=== PATIENT | male | born 1990 | race Caucasian/White ===

== ENCOUNTER 2016-08-22 16:52 | Emergency (ER) | payer SELFPAY ==
[~2016-08-22] VITALS: Ht 175.3 cm; Wt 90.0 kg
[~2016-08-22 16:52] MED LIST: CLEO300C2 PO; MEDR4PAK3 PO
[2016-08-22 16:54] VITALS: BP 138/84; PULSE 94; RESP 15; TEMP 98.1; O2SAT 97
[2016-08-22] MEDS ORDERED: PREPCRE RECTAL (17:29)
[2016-08-22] MEDS ORDERED: IBUP800T23 PO (17:29)
[2016-08-22] MEDS ORDERED: TRAM50TA PO (17:29)
[2016-08-22] MEDS ORDERED: HYDR2.5%T RECTAL (17:30)
--- NOTE | 2016-08-22 17:40 | PD ---
HPI Chief Complaint: Pain: Acute or Chronic Time Seen by Provider: 17:29 Travel History International Travel<30 days: No Contact w/Intl Traveler<30days: No Traveled to known affect area: No History of Present Illness HPI 25-year-old male presents to the emergency room for evaluation of rectal pain for the past 2-3 days. Patient states pain started gradually and has gotten worse. Pain is exacerbated with sitting or any pressure to the rectal area such as with bowel movements. Patient reports no history of constipation but states he gets inpatient on the toilet and pushes his stool out faster than he should. 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 Denies history of hemorrhoids and rectal bleeding. Denies fever, chills, nausea, and vomiting. Patient denies inserting anything into his rectum. He has not applied anything to the area. [facility] Social History Alcohol Use: Yes Tobacco Use: Yes Substance Use: No Allergies-Medications (Allergen,Severity, Reaction): Coded Allergies: Codeine (Verified Allergy, Severe, Anaphylaxis, 08/22/16) Shellfish (Verified Allergy, Severe, 08/22/16) Reported Meds & Prescriptions Reported Meds & Active Scripts Active No Active Prescriptions or Reported Medications Review of Systems Except as stated in HPI: all other systems reviewed are Neg Physical Exam Narrative GENERAL: Well-nourished, well-developed male in no acute distress. Afebrile. Ambulatory. SKIN: Warm and dry. HEAD: Normocephalic. EYES: No scleral icterus. No injection or drainage. NECK: Supple, trachea midline. No JVD or lymphadenopathy. CARDIOVASCULAR: Regular rate and rhythm without murmurs, gallops, or rubs. RESPIRATORY: Breath sounds equal bilaterally. No accessory muscle use. RECTAL EXAM: Examined in the presence of a nurse. There is a fourth degree, nonthrombosed, nonbleeding hemorrhoid at the 2 o'clock position. It is extremely tender to palpation. No surrounding erythema or induration. Data Data Last Documented VS Vital Signs Date Time Temp Pulse Resp B/P Pulse Ox O2 Delivery O2 Flow Rate FiO2 08/22/16 17:13 16 08/22/16 16:54 98.1 94 138/84 97 MDM Medical Decision Making Medical Screen Exam Complete: Yes Emergency Medical Condition: Yes Medical Record Reviewed: Yes Differential Diagnosis Hemorrhoid versus perirectal abscess versus thrombosed hemorrhoid versus foreign body Narrative Course 25-year-old male presents to the emergency room for evaluation of rectal pain for the past 2-3 days. Patient lifts heavy things at work but denies significant constipation. States he pushes his stool out faster than he should because he is "impatient." Physical exam reveals a fourth degree, nonthrombosed , nonbleeding hemorrhoid at the 2 o'clock position. It is extremely tender to palpation. No surrounding erythema or induration. I had my attending physician , Dr. Nobles, assess the patient and there is no concern for perirectal abscess at this time. Patient discharged with prescriptions for tramadol, ibuprofen, and Anusol. Told to follow up with a primary care physician or call her surgeon if symptoms persist or return to the emergency room for worsening symptoms. Understands and agrees to plan. Diagnosis Primary Impression: Hemorrhoids Qualified Code: K64.3 - Fourth degree hemorrhoids Referrals: [facility] Patient Instructions: General Instructions, Hemorrhoids (ED) Additional Instructions: Rest and drink plenty of fluids. Take Ultram as directed, as needed for pain. Do not drink alcohol or drive while taking this medication. Take ibuprofen with food as directed, as needed for pain. Apply Anusol as directed. Do sitz bath 34 times daily. You can also purchase Tucks Pads [id number]. Follow-up with a primary care physician. Return to the emergency room for worsening symptoms. Med/Other Pt SpecificInfo: Prescription(s) given Scripts Ohzkvmekv-Skzvsjjawiyqw-Napkxqch Topical (Preparation H Topical)1-0.25-14.4-15 % Cre1 Applic RECTAL QID PRN (ITCHING) #1 TUBE Ref 0 Prov:Tha Nobles MD 08/22/16 Ibuprofen 800 Mg [id number] Mg PO Q8H PRN (Pain/Inflammation) #21 TAB Ref 0 Prov:Tha Nobles MD 08/22/16 Tramadol 50 Mg Tab50 Mg PO Q6H PRN (PAIN) #12 TAB Ref 0 Prov:Tha Nobles MD 08/22/16 Disposition: 01 DISCHARGE HOME Condition: Stable Tanna Lovelace Aug 22, 2016 17:40
== END 2016-08-22 18:42 | disposition home or self-care (01) ==
LOC: NEPA 16:52
DX: K64.3 Fourth degree hemorrhoids (principal); Z72.0 Tobacco use
CPT/HCPCS: 99283

== ENCOUNTER 2017-06-05 13:36 | Emergency (ER) | payer SELFPAY ==
[~2017-06-05] VITALS: Ht 175.3 cm; Wt 91.0 kg
[~2017-06-05 13:36] MED LIST changes: -CLEO300C2 PO; +HYDR2.5%T RECTAL; +IBUP1TAB7 PO; -MEDR4PAK3 PO; +TRAM50TA PO
[2017-06-05 13:39] VITALS: BP 144/99; PULSE 120; RESP 18; TEMP 98.3; O2SAT 96
[2017-06-05] MEDS ORDERED: PRED20 PO (14:17)
--- NOTE | 2017-06-05 14:17 | PD ---
HPI Chief Complaint: Musculoskeletal Complaint Time Seen by Provider: 14:00 Travel History International Travel<30 days: No Contact w/Intl Traveler<30days: No Traveled to known affect area: No History of Present Illness HPI 26-year-old male here for evaluation of nontraumatic left foot pain since yesterday. Pain is sharp localized to the sole of the foot. worse with weight bearing and slight improvement with rest. He denies puncture wounds or sores to the foot. Pain scale 5/10. PFSH Past Medical History Medical History: Denies Significant Hx Past Surgical History Surgical History: No Previous Surgery Social History Alcohol Use: Yes Tobacco Use: Yes Substance Use: No Allergies-Medications (Allergen,Severity, Reaction): Coded Allergies: codeine (Unverified Allergy, Severe, Anaphylaxis, 06/05/17) shellfish derived (Unverified Allergy, Severe, 06/05/17) Reported Meds & Prescriptions Reported Meds & Active Scripts Active Prednisone 20 Mg Tab 40 Mg PO DAILY Take 40 mg (2 tablets) daily for 5 days Review of Systems Except as stated in HPI: all other systems reviewed are Neg Physical Exam Narrative GENERAL: Well-nourished, well-developed patient. SKIN: Focused skin assessment warm/dry. HEAD: Normocephalic. CARDIOVASCULAR: Regular rate and rhythm without murmurs, gallops, or rubs. RESPIRATORY: Breath sounds equal bilaterally. No accessory muscle use. GASTROINTESTINAL: Abdomen soft, non-tender, nondistended. MUSCULOSKELETAL: No cyanosis, or edema. Left foot: Tenderness across the sole of the left foot. No evidence of puncture wound. No signs or symptoms of infection. No deformity noted. 2+ dorsal pedis pulse. Brisk cap refill. Data Data Last Documented VS Vital Signs Date Time Temp Pulse Resp B/P (MAP) Pulse Ox O2 Delivery O2 Flow Rate FiO2 06/05/17 13:39 98.3 120 18 144/99 (114) 96 Orders Orders Dexamethasone Inj (Decadron Inj) (06/05/17 14:30) MDM Medical Decision Making Medical Screen Exam Complete: Yes Emergency Medical Condition: Yes Differential Diagnosis Plantar fasciitis, midfoot sprain, gout, other Narrative Course 26-year-old male here with nontraumatic left foot pain for 1 day. The pain is localized to the sole of the left foot. There is no evidence of puncture wound , infection, or fracture. Patient will be treated for plantar fasciitis. Diagnosis Primary Impression: Plantar fasciitis Referrals: [facility] Forms: Tests/Procedures, Work Release Enter return to work date: Jun 07, 2017 Additional Instructions: use [id number] Tylenol or Motrin as needed for pain. Avoid prolonged standing and walking. Scripts Prednisone (Prednisone) 20 Mg Tab 40 MG PO DAILY, #8 TAB 0 Refills Take 40 mg (2 tablets) daily for 5 days Prov: Belinda Laurent 06/05/17 Disposition: 01 DISCHARGE HOME Condition: Stable Belinda Laurent Jun 05, 2017 14:17
[2017-06-05] MEDS ORDERED: DEXAMETHASONE SOD PHOS 4 MG/ML VIAL IM ONE (14:30)
== END 2017-06-05 14:29 | disposition home or self-care (01) ==
LOC: PHEFT 13:36
DX: M72.2 Plantar fascial fibromatosis (principal); Z72.0 Tobacco use
CPT/HCPCS: 96372; 99284; J1100

== ENCOUNTER 2017-07-16 17:56 | Emergency (ER) | payer SELFPAY ==
[~2017-07-16] VITALS: Ht 175.3 cm; Wt 95.7 kg
[~2017-07-16 17:56] MED LIST changes: -HYDR2.5%T RECTAL; -IBUP1TAB7 PO; +PRED20 PO; -TRAM50TA PO
[2017-07-16 18:09] VITALS: BP 127/75; PULSE 70; RESP 16; TEMP 98.3; O2SAT 97
--- NOTE | 2017-07-16 19:25 | PD ---
HPI Chief Complaint: Musculoskeletal Complaint Time Seen by Provider: 19:11 Travel History International Travel<30 days: No Contact w/Intl Traveler<30days: No Traveled to known affect area: No History of Present Illness HPI 26-year-old male here with nontraumatic right shoulder and right wrist pain 3 days. He has history of tendinitis. He reports pain similar. Pain is aching, nonradiating, worse with flexion and extension of the wrist and range of motion of shoulder. Relieved with rest. Severity is mild. PFSH Past Medical History Medical History: Denies Significant Hx Tetanus Vaccination: < 5 Years Influenza Vaccination: No Social History Alcohol Use: Yes (RARE) Tobacco Use: Yes (1 PPD) Substance Use: No Allergies-Medications (Allergen,Severity, Reaction): Coded Allergies: codeine (Unverified Allergy, Severe, Anaphylaxis, 07/16/17) shellfish derived (Unverified Allergy, Severe, rash/hives, 07/16/17) Reported Meds & Prescriptions Reported Meds & Active Scripts Active No Active Prescriptions or Reported Medications Review of Systems Except as stated in HPI: all other systems reviewed are Neg General / Constitutional: No: Fever Physical Exam Narrative GENERAL: Alert male. Nontoxic appearing. No distress. SKIN: Warm and dry. HEAD: Normocephalic. EYES: No injection or drainage. NECK: Supple, trachea midline. MUSCULOSKELETAL: No cyanosis, or edema. Mild tenderness to the anterior aspect of the shoulder. The wrist is nontender. Patient has full range of motion of the shoulder and wrist. 2+ brachial, radial pulse. Normal sensation brisk cap refill. Data Data Last Documented VS Vital Signs Date Time Temp Pulse Resp B/P (MAP) Pulse Ox O2 Delivery O2 Flow Rate FiO2 07/16/17 18:09 98.3 70 16 127/75 (92) 97 MDM Medical Decision Making Medical Screen Exam Complete: Yes Emergency Medical Condition: Yes Differential Diagnosis Tenderness, strain, other Narrative Course 26-year-old male with nontraumatic right shoulder and wrist pain. His exam is essentially benign. His history of tendinitis. He'll be treated with NSAIDs. Diagnosis Primary Impression: Shoulder pain Qualified Codes: M25.511 - Pain in right shoulder Additional Impression: Wrist pain Qualified Codes: M25.531 - Pain in right wrist Referrals: [facility] Departure Forms: Tests/Procedures, Work Release Enter return to work date: Jul 17, 2017 Additional Instructions: Take [id number] Motrin 800 mg every 6 hours as needed for pain Scripts No Active Prescriptions or Reported Meds Disposition: 01 DISCHARGE HOME Condition: Belinda Munoz Jul 16, 2017 19:25
== END 2017-07-16 19:34 | disposition home or self-care (01) ==
LOC: PHEFT 17:56
DX: M25.511 Pain in right shoulder (principal); M25.531 Pain in right wrist; F17.200 Nicotine dependence, unspecified, uncomplicated
CPT/HCPCS: 99282

== ENCOUNTER 2017-10-07 20:48 | Emergency (ER) | payer SELFPAY ==
[~2017-10-07] VITALS: Ht 175.3 cm; Wt 95.8 kg
[2017-10-07 20:54] VITALS: BP 131/81; PULSE 78; RESP 16; TEMP 98.6; O2SAT 97
[2017-10-07] MEDS ORDERED: PRED-503 PO (21:10)
[2017-10-07] MEDS ORDERED: IBUP1TAB7 PO (21:10)
--- NOTE | 2017-10-07 21:11 | PD ---
HPI Chief Complaint: Injury Time Seen by Provider: 21:02 Travel History International Travel<30 days: No Contact w/Intl Traveler<30days: No Traveled to known affect area: No History of Present Illness HPI 27-year-old male presents to the emergency department complaining of around a lot. Has history of plantar fasciitis and feels it is exacerbated. Denies swelling of his foot or erythema. Denies fever, vomiting. Denies paresthesias , loss of sensation, decreased range of motion, decreased strength to the affected extremity. Has been ambulatory in the affected extremity. Says pain is worse in the morning and better throughout the day. Rates pain 3/10. Worse with walking and in the mornings. Has been taking ibuprofen for symptom management with some relief. Says last time he was here for his foot pain he was given steroids and it helped with his pain. He is requesting steroids again. Allergies to codeine and shellfish. No primary care provider. Has not followed up with podiatry. Denies significant past medical history. Has no other medical complaints. No other modifying factors or associated signs and symptoms. PFSH Past Medical History Diminished Hearing: No Tetanus Vaccination: Unknown Influenza Vaccination: No ?: Not Social History Alcohol Use: Yes (RARE) Tobacco Use: Yes (1 PPD) Substance Use: No Allergies-Medications (Allergen,Severity, Reaction): Coded Allergies: codeine (Unverified Allergy, Severe, Anaphylaxis, 10/07/17) shellfish derived (Unverified Allergy, Severe, rash/hives, 10/07/17) Reported Meds & Prescriptions Reported Meds & Active Scripts Active Ibuprofen 800 Mg Tab 800 Mg PO Q6HR PRN Deltasone (Prednisone) 20 Mg Tab 40 Mg PO DAILY 4 Days start 10/08/2017 Review of Systems Except as stated in HPI: all other systems reviewed are Neg Physical Exam Narrative GENERAL: Well-nourished, well-developed male patient, in no acute distress SKIN: Warm and dry. HEAD: Atraumatic. Normocephalic. EYES: Pupils equal and round. No scleral icterus. No injection or drainage. ENT: Mucosa pink and moist. Airway patent. NECK: Trachea midline. CARDIOVASCULAR: Regular rate. RESPIRATORY: No accessory muscle use. GASTROINTESTINAL: Flat. MUSCULOSKELETAL: Right foot without erythema, edema, ecchymosis; sensory intact ; tenderness on palpation to the plantar aspect of the foot. Right lower extremity is supple nontender with 2+ pedal pulse and sensory intact without erythema or edema. No obvious deformities. No clubbing. No cyanosis. No edema. NEUROLOGICAL: Awake and alert. Oriented 3. No obvious cranial nerve deficits. Motor grossly within normal limits. Normal speech. PSYCHIATRIC: Appropriate mood and affect; insight and judgment normal. Data Data Last Documented VS Vital Signs Date Time Temp Pulse Resp B/P (MAP) Pulse Ox O2 Delivery O2 Flow Rate FiO2 10/07/17 20:54 98.6 78 16 131/81 (98) 97 Orders Orders Ibuprofen (Motrin) (10/07/17 21:15) Prednisone (Deltasone) (10/07/17 21:15) Ed Discharge Order (10/07/17 21:11) [facility] Medical Decision Making Medical Screen Exam Complete: Yes Emergency Medical Condition: Yes Medical Record Reviewed: Yes Differential Diagnosis Foot pain, foot strain, plantar fasciitis, bone spur Narrative Course 27-year-old male with history of plantar fasciitis with exacerbation of right foot pain. Denies injury. I offered x-ray of the foot and he and I agree x- ray is not necessary. After the patient crutches for support and he declined. He is requesting steroids, just like he was prescribed before which helped his foot pain. Deltasone and ibuprofen administered in the ER. Deltasone and ibuprofen prescribed for home. Inserted patient to follow-up with podiatry. Instructed patient to follow up with primary care provider. Patient verbalizes understanding and agreement with treatment plan. Patient is medically cleared and stable for discharge. Discussed reasons to return to the emergency department. Patient agrees with treatment plan. The patients vital signs are stable and the patient is stable for outpatient follow-up and treatment. Patient discharged home, stable and in no acute distress. Diagnosis Primary Impression: Right foot pain Referrals: [facility] Primary Care Physician Patient Instructions: General Instructions, Plantar Fasciitis (ED), Plantar Fasciitis Exercises (ED) Departure Forms: Tests/Procedures, Work Release Enter return to work date: Oct 10, 2017 Additional Instructions: Tylenol or ibuprofen as directed and as needed for pain Refer to Instructions for plantar fasciitis stretching exercises Avoid the use of flat shoes and barefoot walking Use heel shoe inserts or arch supports and/or heel cups as needed Decrease physical activity that causes aggravation of pain Follow-up with podiatry Follow-up with primary care Return to the emergency department immediately with worsening of symptoms Med/Other Pt SpecificInfo: Prescription(s) given Scripts Ibuprofen (Ibuprofen) 800 Mg Tab 800 MG PO Q6HR Y for PAIN, #30 TAB 0 Refills Prov: Keren Arita 10/07/17 Prednisone (Deltasone) 20 Mg Tab 40 MG PO DAILY for 4 Days, #8 TAB 0 Refills start 10/08/2017 Prov: Keren Arita 10/07/17 Disposition: 01 DISCHARGE HOME Condition: Stable Keren Arita Oct 07, 2017 21:11
[2017-10-07] MEDS ORDERED: IBUPROFEN 800 MG TAB PO ONE (21:15)
[2017-10-07] MEDS ORDERED: predniSONE 20 MG TAB PO ONE (21:15)
== END 2017-10-07 21:25 | disposition home or self-care (01) ==
LOC: PHEFT 20:48
DX: M79.671 Pain in right foot (principal); M72.2 Plantar fascial fibromatosis; F17.200 Nicotine dependence, unspecified, uncomplicated
CPT/HCPCS: 99283; J7512

== ENCOUNTER 2017-11-14 20:35 | Emergency (ER) | payer SELFPAY ==
[~2017-11-14] VITALS: Ht 175.3 cm; Wt 96.5 kg
[~2017-11-14 20:35] MED LIST changes: +IBUP1TAB7 PO; +PRED-503 PO; -PRED20 PO
[2017-11-14 20:42] VITALS: BP 149/87; PULSE 71; RESP 18; TEMP 98.5; O2SAT 98
[2017-11-14 21:00] VITALS: BP 149/87; PULSE 71; RESP 18; TEMP 98.5; O2SAT 98
--- NOTE | 2017-11-14 21:28 | PD ---
HPI Chief Complaint: GI Complaint Time Seen by Provider: 21:04 Travel History International Travel<30 days: No Contact w/Intl Traveler<30days: No Traveled to known affect area: No History of Present Illness HPI The patient is a 27-year-old male that for 3 days as noted green diarrhea stool. He works as a cook in a restaurant. He also complains for 3 days left back pain that shoots down his left leg all the way to the foot. He denies any weakness or numbness of the left leg. He denies any bladder dysfunction. His pain is sharp shooting pain with an intensity level of 5/10. He denies any significant abdominal pain. He denies any fever. He denies any nausea or vomiting. PFSH Past Medical History Diminished Hearing: No Musculoskeletal: Yes (back pain, tendonitis, plantar fascitis) Past Surgical History Surgical History: No Previous Surgery Social History Alcohol Use: Yes (occasional) Tobacco Use: Yes Substance Use: No Allergies-Medications (Allergen,Severity, Reaction): Coded Allergies: codeine (Unverified Allergy, Severe, Anaphylaxis, 10/07/17) shellfish derived (Unverified Allergy, Severe, rash/hives, 10/07/17) Reported Meds & Prescriptions Reported Meds & Active Scripts Active Ibuprofen 800 Mg Tab 800 Mg PO TID Flexeril (Cyclobenzaprine HCl) 10 Mg Tab 10 Mg PO TID Percocet (Oxycodone-Acetaminophen) 5-325 mg Tab 1 Tab PO Q6H PRN Ibuprofen 800 Mg Tab 800 Mg PO Q6HR PRN Deltasone (Prednisone) 20 Mg Tab 40 Mg PO DAILY 4 Days start 10/08/2017 Review of Systems Except as stated in HPI: all other systems reviewed are Neg Physical Exam Narrative GENERAL: The patient is alert, oriented 3 in moderate apparent distress with his left back pain. His vital signs show blood pressure 129/87 but are otherwise normal. SKIN: Focused skin assessment warm/dry. HEAD: Atraumatic. Normocephalic. EYES: Pupils equal and round. No scleral icterus. No injection or drainage. ENT: No nasal bleeding or discharge. Mucous membranes pink and moist. NECK: Trachea midline. No JVD. CARDIOVASCULAR: Regular rate and rhythm. No murmur appreciated. RESPIRATORY: No accessory muscle use. Clear to auscultation. Breath sounds equal bilaterally. GASTROINTESTINAL: Abdomen soft, non-tender, nondistended. Hepatic and splenic margins not palpable. MUSCULOSKELETAL: No obvious deformities. No clubbing. No cyanosis. No edema. I can completely reproduce the patient's pain including radiation of pain by pressing to the left of the lower lumbar spine. NEUROLOGICAL: Awake and alert. No obvious cranial nerve deficits. Motor grossly within normal limits. Normal speech. PSYCHIATRIC: Appropriate mood and affect; insight and judgment normal. RECTAL EXAM: No masses or tenderness, stool is green but guaiac negative. Data Data Last Documented VS Vital Signs Date Time Temp Pulse Resp B/P (MAP) Pulse Ox O2 Delivery O2 Flow Rate FiO2 11/14/17 21:00 98.5 71 18 149/87 (107) [address] Lumb Spine W/O Contrast (11/14/17 21:18) Ketorolac Inj (Toradol Inj) (11/14/17 21:30) Sodium Chlor 0.9% 1000 Ml Inj (Ns 1000 M (11/14/17 21:30) Complete Blood Count With Diff (11/14/17 21:29) Basic Metabolic Panel (Bmp) (11/14/17 21:29) Lipase (11/14/17 21:29) Orphenadrine Inj (Norflex Inj) (11/14/17 21:45) Labs Laboratory Tests Test 11/14/17 21:30 White Blood Count 11.0 TH/MM3 Red Blood Count 4.90 MIL/MM3 Hemoglobin 15.4 GM/DL Hematocrit 47.0 % Mean Corpuscular Volume 95.8 FL Mean Corpuscular Hemoglobin 31.5 PG Mean Corpuscular Hemoglobin Concent 32.8 % Red Cell Distribution Width 13.3 % Platelet Count 207 TH/MM3 Mean Platelet Volume 8.6 FL Neutrophils (%) (Auto) 71.7 % Lymphocytes (%) (Auto) 20.4 % Monocytes (%) (Auto) 6.4 % Eosinophils (%) (Auto) 0.7 % Basophils (%) (Auto) 0.8 % Neutrophils # (Auto) 7.9 TH/MM3 Lymphocytes # (Auto) 2.2 TH/MM3 Monocytes # (Auto) 0.7 TH/MM3 Eosinophils # (Auto) 0.1 TH/MM3 Basophils # (Auto) 0.1 TH/MM3 CBC Comment DIFF FINAL Differential Comment Blood Urea Nitrogen 11 MG/DL Creatinine 1.20 MG/DL Random Glucose 89 MG/DL Calcium Level 9.0 MG/DL Sodium Level 138 MEQ/L Potassium Level 3.9 MEQ/L Chloride Level 106 MEQ/L Carbon Dioxide Level 27.5 MEQ/L Anion Gap 5 MEQ/L Estimat Glomerular Filtration Rate 72 ML/MIN Lipase 110 U/L MDM Medical Decision Making Medical Screen Exam Complete: Yes Emergency Medical Condition: Yes Medical Record Reviewed: Yes Interpretation(s) The CT scan shows no spinal canal compromise and neural foramina appear to be adequate throughout with no root compromise to explain his symptoms. There is mild levoscoliosis. The CBC is normal. The basic metabolic profile is normal except for a GFR of 72. Differential Diagnosis Lumbar radiculopathy, herniated nucleus pulposus, spinal canal impingement, acute lumbar strain Narrative Course The patient appears to have lumbar radiculopathy. There is no evidence of bony impingement and this appears to not be requiring surgery. The patient will be given Flexeril, Percocet and ibuprofen and follow-up with his primary care physician. He is given a work excuse for 5 days rest. Diagnosis Primary Impression: Lumbar radiculopathy, acute Additional Instructions: As we discussed, rest is important, we will write you a work excuse for 5 days. Med/Other Pt SpecificInfo: Prescription(s) given Scripts Ibuprofen (Ibuprofen) 800 Mg Tab 800 MG PO TID for Arthritis Pain, #33 TAB 0 Refills Prov: Houston East MD 11/14/17 Cyclobenzaprine (Flexeril) 10 Mg Tab 10 MG PO TID for Muscle Spasm, #30 TAB 0 Refills Prov: Houston East MD 11/14/17 Oxycodone-Acetaminophen (Percocet) 5-325 mg Tab 1 TAB PO Q6H Y for PAIN, #15 TAB 0 Refills Prov: Houston East MD 11/14/17 Disposition: 01 DISCHARGE HOME Condition: Stable Houston East MD Nov 14, 2017 21:28
[2017-11-14] MEDS ORDERED: KETOROLAC TROMETHAMINE 60 MG/2 ML (IM) VIAL IVP ONE (21:30)
[2017-11-14] MEDS ORDERED: SODIUM CHLOR 0.9% 1000 ML INJ 1,000 ML IV SCH (21:30)
[2017-11-14] MEDS ORDERED: ORPHENADRINE INJ 60 MG/2 ML AMP IM ONE (21:45)
[2017-11-14 21:47] LABS: AUTOMATED NEUTROPHIL # 7.9 TH/MM3 (1.8-7.7); BASOPHIL # 0.1 TH/MM3 (0-0.2); BASOPHIL % 0.8 % (0.0-2.0); EOSINOPHIL # 0.1 TH/MM3 (0-0.4); EOSINOPHIL % 0.7 % (0.0-4.0); HEMOGLOBIN 15.4 GM/DL (13.0-17.0); LYMPH % 20.4 % (9.0-44.0); LYMPHOCYTE # 2.2 TH/MM3 (1.0-4.8); MEAN CELL VOLUME 95.8 FL (80.0-100.0); MEAN CORPUSCULAR HEMOGLOBIN 31.5 PG (27.0-34.0); MEAN CORPUSCULAR HGB CONC 32.8 % (32.0-36.0); MEAN PLATELET VOLUME 8.6 FL (7.0-11.0); MONO % 6.4 % (0.0-8.0); MONOCYTE # 0.7 TH/MM3 (0-0.9); NEUT % 71.7 % (16.0-70.0); PLATELET COUNT 207 TH/MM3 (150-450); RED CELL DISTRIBUTION WIDTH 13.3 % (11.6-17.2)
[2017-11-14 21:59] LABS: BICARBONATE 27.5 MEQ/L (21.0-32.0)
[2017-11-14 22:02] LABS: CREATININE 1.2 MG/DL (0.60-1.30)
[2017-11-14] MEDS ORDERED: PERC5TAB12 PO (23:17)
[2017-11-14] MEDS ORDERED: IBUP1TAB7 PO (23:17)
[2017-11-14] MEDS ORDERED: CYCL10TA PO (23:17)
--- NOTE | 2017-11-15 00:42 | RADRPT ---
EXAM DATE/TIME: 11/14/2017 22:27 [place] COMPARISON: No previous studies available for comparison. INDICATIONS : Lower back pain radiating into left leg. RADIATION DOSE: 24.69 CTDIvol (mGy) MEDICAL HISTORY : None SURGICAL HISTORY : None. ENCOUNTER: Initial ACUITY: 1 day PAIN SCALE: 5/10 LOCATION: lower back TECHNIQUE: Volumetric scanning of the lumbar spine was performed. Multiplanar reconstructions in the sagittal, coronal and oblique axial planes were performed. Using automated exposure control and adjustment of the mA and/or kV according to patient size, radiation dose was kept as low as reasonably achievable t o obtain optimal diagnostic quality images. DICOM format image data is available electronically for review and comparison. FINDINGS: 5 non-rib lumbar-type vertebral bodies. Mild levoscoliosis of the lumbar spine. Vertebral body and di sc heights are maintained throughout. No listhesis. Spinal canal is widely patent. T12-L1: The thecal sac has a normal diameter. No evidence of disc bulge or protrusion. The neural foramina are patent bilaterally. L1-L2: The thecal sac has a normal diameter. No evidence of disc bulge or protrusion. The neural foramina are patent bilaterally. L2-L3: The thecal sac has a normal diameter. No evidence of disc bulge or protrusion. The neural foramina are patent bilaterally. L3-L4: The thecal sac has a normal diameter. No evidence of disc bulge or protrusion. The neural foramina are patent bilaterally. L4-L5: The thecal sac has a normal diameter. No evidence of disc bulge or protrusion. The neural foramina are patent bilaterally. L5-S1: The thecal sac has a normal diameter. No evidence of disc bulge or protrusion. The neural foramina are patent bilaterally. CONCLUSION: 1. Mild levoscoliosis of the lumbar spine may be positional. 2. Otherwise negative. No acute fracture. Spinal canal and neural foramina appear to be adequate thro ughout with no nerve root compromise to explain current clinical symptoms Bartolome Maldonado MD on November 15, 2017 at 0:37 Board Certified Radiologist. This report was verified electronically.
[2017-11-15 01:17] VITALS: BP 150/91
[2017-11-15 01:18] VITALS: RESP 18
== END 2017-11-15 01:15 | disposition home or self-care (01) ==
LOC: PHED 20:35
DX: M54.16 Radiculopathy, lumbar region (principal); M41.9 Scoliosis, unspecified; Z72.0 Tobacco use; Z88.5 Allergy status to narcotic agent; Z79.899 Other long term (current) drug therapy
CPT/HCPCS: 72131; 80048; 83690; 85025; 96361; 96372; 96374; 99284; J1885; J2360; J7030